=== PATIENT | male | born 1940 | race Hispanic/Latino ===

== ENCOUNTER 2024-03-21 04:12 | Emergency (ER) | payer MEDICARE ==
[~2024-03-21] VITALS: Ht 165.1 cm; Wt 60.3 kg
[2024-03-21 04:46] LABS: RAPID GROUP A STREP negative (NEGATIVE)
[2024-03-21 04:48] LABS: SARS-CoV-2, RNA, NAAT NEGATIVE SARS CoV-2 (NEGATIVE)
[2024-03-21 04:53] LABS: INFLUENZA TYPE A Negative For Type A (NEGATIVE); INFLUENZA TYPE B Negative For Type B (NEGATIVE)
[2024-03-21] MEDS: IPRATROPIUM/ALBUTEROL SULFATE 3 ML SOLUTION IH ONE (05:07)
[2024-03-21 05:10] VITALS: PULSE 70; RESP 19
[2024-03-21 05:29] LABS: BASOPHILS # (AUTO) 0.02 K/uL (0.00-0.20); BASOPHILS % (AUTO) 0.2 % (0.0-5.0); EOSINOPHILS # (AUTO) 0.05 K/uL (0.00-0.70); EOSINOPHILS % (AUTO) 0.5 % (0.0-8.0); IMMATURE GRANULOCYTE ABSOLUTE 0.04 K/uL (0-1); LYMPHOCYTES # (AUTO) 1.4 K/uL (1.0-4.8); LYMPHOCYTES % (AUTO) 13.3 % (21.0-51.0); MEAN CORPUSCULAR HEMOGLOBIN 29.3 pg (27.0-33.0); MEAN CORPUSCULAR HGB CONC 33.6 g/dL (32.0-36.0); MEAN CORPUSCULAR VOLUME 87.1 fL (79-99); MONOCYTES # (AUTO) 0.6 K/uL (0.1-1.0); MONOCYTES % (AUTO) 5.9 % (3.0-13.0); NEUTROPHILS # (AUTO) 8.4 K/uL (1.8-7.7); NEUTROPHILS % (AUTO) 79.7 % (40.0-77.0); PLATELET COUNT (AUTO) 263 K/uL (130-400); RED BLOOD CELL COUNT(AUTO) 5.05 MIL/uL (4.50-6.20); RED CELL DISTRIBUTION WIDTH 13.4 % (11.0-15.5); WHITE BLOOD COUNT (AUTO) 10.5 K/uL (4.8-10.8)
[2024-03-21 05:40] LABS: CREATININE 1.3 mg/dL (0.5-1.3); POTASSIUM 4.3 mmol/L (3.5-5.1)
[2024-03-21 05:45] LABS: ALBUMIN 3.8 g/dL (3.5-5.0); BILIRUBIN,TOTAL 0.3 mg/dL (0.2-1.0); TOTAL PROTEIN, SERUM 8.2 g/dL (6.0-8.3)
[2024-03-21 06:06] LABS: B-TYPE NATRIURETIC PEPTIDE 104 pg/mL (0-100)
[2024-03-21 06:43] VITALS: BP 138/70; PULSE 80; RESP 18; O2SAT 98
[2024-03-21] MEDS ORDERED: AZIT500T2 PO (06:51)
[2024-03-21] MEDS ORDERED: ALBUHFA IH (06:51)
== END 2024-03-21 07:02 | disposition home or self-care (01) ==
LOC: EDH 04:12
DX: J20.9 Acute bronchitis, unspecified (principal); I10 Essential (primary) hypertension; Z20.822 Contact with and (suspected) exposure to COVID-19
CPT/HCPCS: 36415; 71045; 80053; 82550; 83880; 84484; 85025; 87635; 87804; 87880; 93005; 94640

== ENCOUNTER 2024-05-13 02:17 | Emergency (ER) | payer BC, MEDICARE ==
[~2024-05-13] VITALS: Ht 165.1 cm; Wt 59.4 kg
[~2024-05-13 02:17] MED LIST: ALBUHFA IH; AZIT500T2 PO
[2024-05-13 02:37] LABS: BASOPHILS # (AUTO) 0.05 K/uL (0.00-0.20); BASOPHILS % (AUTO) 0.4 % (0.0-5.0); EOSINOPHILS % (AUTO) 0.7 % (0.0-8.0); HEMATOCRIT 38.8 % (42-54); IMMATURE GRANULOCYTE ABSOLUTE 0.05 K/uL (0-1); LYMPHOCYTES # (AUTO) 1.8 K/uL (1.0-4.8); LYMPHOCYTES % (AUTO) 13.7 % (21.0-51.0); MEAN CORPUSCULAR HEMOGLOBIN 28.7 pg (27.0-33.0); MEAN CORPUSCULAR HGB CONC 33.8 g/dL (32.0-36.0); MEAN CORPUSCULAR VOLUME 84.9 fL (79-99); MONOCYTES # (AUTO) 0.9 K/uL (0.1-1.0); MONOCYTES % (AUTO) 6.6 % (3.0-13.0); NEUTROPHILS # (AUTO) 10.5 K/uL (1.8-7.7); NEUTROPHILS % (AUTO) 78.2 % (40.0-77.0); PLATELET COUNT (AUTO) 268 K/uL (130-400); RED BLOOD CELL COUNT(AUTO) 4.57 MIL/uL (4.50-6.20); RED CELL DISTRIBUTION WIDTH 13.7 % (11.0-15.5); WHITE BLOOD COUNT (AUTO) 13.4 K/uL (4.8-10.8)
[2024-05-13 02:47] LABS: CREATININE 1.3 mg/dL (0.5-1.3); POTASSIUM 4.2 mmol/L (3.5-5.1)
[2024-05-13 02:50] LABS: SARS-CoV-2, RNA, NAAT NEGATIVE SARS CoV-2 (NEGATIVE)
[2024-05-13 02:55] LABS: INFLUENZA TYPE A Negative For Type A (NEGATIVE); INFLUENZA TYPE B Negative For Type B (NEGATIVE)
[2024-05-13 02:57] LABS: B-TYPE NATRIURETIC PEPTIDE 96 pg/mL (0-100)
[2024-05-13] MEDS: 0.9% NACL 500ML IV.SOLN 500 ML IV ONE (03:13)
[2024-05-13] MEDS: SOLU-MEDROL 40MG VIAL IVP ONE (03:13)
[2024-05-13 03:14] LABS: APPEARANCE,URINE CLEAR (CLEAR); BILIRUBIN,URINE NEGATIVE (NEGATIVE); COLOR,URINE LIGHT-YELLOW (YELLOW); GLUCOSE, URINE (UA) NEGATIVE (NEGATIVE); KETONES,URINE NEGATIVE (NEGATIVE); LEUKOCYTE ESTERASE ,URINE NEGATIVE Leu/uL (NEGATIVE); NITRATE,URINE NEGATIVE (NEGATIVE); OCCULT BLOOD,URINE NEGATIVE (NEGATIVE); PROTEIN,URINE NEGATIVE (NEGATIVE); UROBILINOGEN,URINE 0.2 mg/dL (0.2-1.0)
[2024-05-13 03:16] LABS: ADD UA MICROSCOPIC NO
[2024-05-13] MEDS: ZOSYN 3.375GM +NS 50ML IV ONE (03:31)
[2024-05-13] MEDS: IPRATROPIUM/ALBUTEROL SULFATE 3 ML SOLUTION IH ONE (03:35)
[2024-05-13 03:41] VITALS: PULSE 79; RESP 18
[2024-05-13] MEDS ORDERED: LEVO750T39 PO (04:32)
[2024-05-13] MEDS ORDERED: BUDE10.7 IH (04:32)
[2024-05-13] MEDS ORDERED: PRED20TA3 PO (04:32)
[2024-05-13 04:55] VITALS: BP 163/58; PULSE 79; RESP 18; O2SAT 97
== END 2024-05-13 04:56 | disposition home or self-care (01) ==
LOC: EDH 02:17
DX: J44.1 Chronic obstructive pulmonary disease with (acute) exacerbation (principal); J96.11 Chronic respiratory failure with hypoxia; E78.00 Pure hypercholesterolemia, unspecified; I10 Essential (primary) hypertension; F17.200 Nicotine dependence, unspecified, uncomplicated; Z20.822 Contact with and (suspected) exposure to COVID-19; Z99.81 Dependence on supplemental oxygen; Z79.899 Other long term (current) drug therapy; Z98.890 Other specified postprocedural states
CPT/HCPCS: 99291; 96374; 71045; 87635; 96375; 82550; 84484 ×2; 80048; 83880; 85025; 87804 ×2; 81003; 36415; 93005; 94640; J7040; J2919; J2543

== ENCOUNTER 2024-05-18 23:07 | Emergency (ER) | payer MEDICARE ==
[~2024-05-18] VITALS: Ht 165.1 cm; Wt 59.0 kg
[~2024-05-18 23:07] MED LIST changes: +BUDE10.7 IH; +LEVO750T39 PO; +PRED20TA3 PO
[2024-05-18] MEDS: SOLU-MEDROL 125MG VIAL IVP ONE (23:30)
[2024-05-18 23:31] LABS: HEMATOCRIT 42.2 % (42-54); IMMATURE GRANULOCYTE ABSOLUTE 0.04 K/uL (0-1); LYMPHOCYTES # (AUTO) 0.5 K/uL (1.0-4.8); LYMPHOCYTES % (AUTO) 4.6 % (21.0-51.0); MEAN CORPUSCULAR HEMOGLOBIN 28.8 pg (27.0-33.0); MEAN CORPUSCULAR HGB CONC 34.4 g/dL (32.0-36.0); MEAN CORPUSCULAR VOLUME 83.7 fL (79-99); MONOCYTES # (AUTO) 0.5 K/uL (0.1-1.0); MONOCYTES % (AUTO) 4.6 % (3.0-13.0); NEUTROPHILS % (AUTO) 90.4 % (40.0-77.0); PLATELET COUNT (AUTO) 286 K/uL (130-400); RED BLOOD CELL COUNT(AUTO) 5.04 MIL/uL (4.50-6.20); RED CELL DISTRIBUTION WIDTH 13.9 % (11.0-15.5)
[2024-05-18 23:38] LABS: CREATININE 1.2 mg/dL (0.5-1.3); POTASSIUM 4.3 mmol/L (3.5-5.1)
[2024-05-18] MEDS: IPRATROPIUM/ALBUTEROL SULFATE 3 ML SOLUTION IH ONE (23:48)
[2024-05-18 23:49] VITALS: PULSE 83; RESP 19
[2024-05-19 00:01] LABS: INR <= 0.93 (0.85-1.15); PROTHROMBIN TIME 10.5 SEC (9.6-11.6)
[2024-05-19 00:19] LABS: PARTIAL THROMBOPLASTIN TIME 26.9 SEC (26.3-35.5)
[2024-05-19 01:55] LABS: B-TYPE NATRIURETIC PEPTIDE 71 pg/mL (0-100)
[2024-05-19 02:18] VITALS: BP 137/60; PULSE 90; RESP 11; O2SAT 97
[2024-05-19] MEDS ORDERED: AZIT250T9 PO (02:32)
[2024-05-19] MEDS ORDERED: METH4TAB3 PO (02:32)
== END 2024-05-19 02:50 | disposition home health service (06) ==
LOC: EDH 23:07
DX: J18.9 Pneumonia, unspecified organism (principal); J98.4 Other disorders of lung; J44.9 Chronic obstructive pulmonary disease, unspecified; E78.00 Pure hypercholesterolemia, unspecified; I10 Essential (primary) hypertension; Z90.49 Acquired absence of other specified parts of digestive tract
CPT/HCPCS: 99285; 96374; 71045; 84484; 80048; 83880; 85025; 85610; 85730; 36415; 93005; 94640; 84145; J2919

== ENCOUNTER 2024-05-30 04:01 | Emergency (ER) | payer MEDICARE ==
[~2024-05-30] VITALS: Ht 165.1 cm; Wt 61.2 kg
[~2024-05-30 04:01] MED LIST changes: +AZIT250T9 PO; +METH4TAB3 PO
[2024-05-30 04:43] LABS: APPEARANCE,URINE CLEAR (CLEAR); BILIRUBIN,URINE NEGATIVE (NEGATIVE); COLOR,URINE COLORLESS (YELLOW); GLUCOSE, URINE (UA) NEGATIVE (NEGATIVE); KETONES,URINE NEGATIVE (NEGATIVE); LEUKOCYTE ESTERASE ,URINE NEGATIVE Leu/uL (NEGATIVE); NITRATE,URINE NEGATIVE (NEGATIVE); OCCULT BLOOD,URINE NEGATIVE (NEGATIVE); PROTEIN,URINE NEGATIVE (NEGATIVE); UROBILINOGEN,URINE 0.2 mg/dL (0.2-1.0)
[2024-05-30 04:56] LABS: SARS-CoV-2, RNA, NAAT NEGATIVE SARS CoV-2 (NEGATIVE)
[2024-05-30] MEDS ORDERED: IPRATROPIUM/ALBUTEROL SULFATE 3 ML SOLUTION IH ONE (05:00)
[2024-05-30 05:03] LABS: INFLUENZA TYPE A Negative For Type A (NEGATIVE); INFLUENZA TYPE B Negative For Type B (NEGATIVE)
[2024-05-30 05:06] LABS: ADD UA MICROSCOPIC NO
[2024-05-30 05:25] LABS: BASOPHILS # (AUTO) 0.02 K/uL (0.00-0.20); BASOPHILS % (AUTO) 0.3 % (0.0-5.0); EOSINOPHILS # (AUTO) 0.11 K/uL (0.00-0.70); EOSINOPHILS % (AUTO) 1.6 % (0.0-8.0); HEMATOCRIT 39.5 % (42-54); IMMATURE GRANULOCYTE ABSOLUTE 0.02 K/uL (0-1); LYMPHOCYTES # (AUTO) 1.2 K/uL (1.0-4.8); LYMPHOCYTES % (AUTO) 17.2 % (21.0-51.0); MEAN CORPUSCULAR HEMOGLOBIN 28.1 pg (27.0-33.0); MEAN CORPUSCULAR HGB CONC 32.4 g/dL (32.0-36.0); MEAN CORPUSCULAR VOLUME 86.6 fL (79-99); MONOCYTES # (AUTO) 0.6 K/uL (0.1-1.0); MONOCYTES % (AUTO) 8.4 % (3.0-13.0); NEUTROPHILS # (AUTO) 5.1 K/uL (1.8-7.7); NEUTROPHILS % (AUTO) 72.2 % (40.0-77.0); PLATELET COUNT (AUTO) 230 K/uL (130-400); RED BLOOD CELL COUNT(AUTO) 4.56 MIL/uL (4.50-6.20)
[2024-05-30 05:50] LABS: ALBUMIN 3.1 g/dL (3.5-5.0); BILIRUBIN,TOTAL 0.4 mg/dL (0.2-1.0); CREATININE 1.2 mg/dL (0.5-1.3); POTASSIUM 4.4 mmol/L (3.5-5.1); TOTAL PROTEIN, SERUM 6.3 g/dL (6.0-8.3)
[2024-05-30] MEDS ORDERED: AMOX1TAB16 PO (06:27)
[2024-05-30] MEDS ORDERED: FLUT16H NASAL (06:27)
[2024-05-30 06:42] VITALS: BP 134/74; PULSE 66; RESP 20; O2SAT 98
== END 2024-05-30 06:45 | disposition home or self-care (01) ==
LOC: EDH 04:01
DX: J32.9 Chronic sinusitis, unspecified (principal); E78.00 Pure hypercholesterolemia, unspecified; I10 Essential (primary) hypertension; Z79.52 Long term (current) use of systemic steroids; Z90.49 Acquired absence of other specified parts of digestive tract; Z20.822 Contact with and (suspected) exposure to COVID-19
CPT/HCPCS: 36415; 71045; 80053; 81003; 83880; 84484; 85025; 87635; 87804; 93005

== ENCOUNTER → 2024-06-08 | Outpatient (CLI) | payer MEDICARE ==
[~2024-06-08] MED LIST changes: +AMOX1TAB16 PO; +FLUT16H NASAL
== END | disposition home or self-care (01) ==
LOC: RAH 12:56
PROVIDERS: ATTEND Internal Medicine
DX: R91.1 Solitary pulmonary nodule (principal); J84.10 Pulmonary fibrosis, unspecified; I25.10 Atherosclerotic heart disease of native coronary artery without angina pectoris; M47.815 Spondylosis without myelopathy or radiculopathy, thoracolumbar region
CPT/HCPCS: 71250

== ENCOUNTER → 2025-01-09 | Outpatient (CLI) | payer BC ==
[~2025-01-09] MED LIST changes: -ALBUHFA IH; +AMLO-257 PO; -AMOX1TAB16 PO; +ASPI-1005 PO; -AZIT250T9 PO; -AZIT500T2 PO; -LEVO750T39 PO; +LOSA100T59 PO; -METH4TAB3 PO; +PRAV20TA4 PO; -PRED20TA3 PO
--- NOTE | 2025-01-09 14:49 | HMCIMG ---
CT CHEST W/O CONTRAST HISTORY: Pulmonary nodule COMPARISON: 07/18/2024 TECHNIQUE: Multiple sequential axial images of the chest were obtained from the thoracic inlet through upper abdomen. Patient was not given contrast through intravenous route. FINDINGS: There is right upper lobe pulmonary nodule measuring 7.3 mm. There are interstitial fibrosis. Calcified granuloma are seen in the bilateral lower lobe superiorly. Minimal interstitial fibrotic changes are seen. No pleural effusion or pericardial effusion is seen. There is no evidence of pneumothorax. There are normal size mediastinal and hilar lymph nodes. The heart is not enlarged. Is coronary arterial calcifications are seen. Degenerative changes of the thoracolumbar spine are present. There is no evidence of adrenal nodule. IMPRESSION: 1. Right upper lobe pulmonary nodule measuring 7.3 mm. Calcified granuloma in the bilateral lower lobes. Interstitial fibrosis with mild bronchiectasis. CT was performed with one or more following dose reduction techniques: automated exposure control, adjustment of the mA and kv according to patient's size, or use of a iterative reconstruction technique.
== END | disposition home or self-care (01) ==
LOC: RAH 12:36
PROVIDERS: ATTEND Internal Medicine
DX: J84.10 Pulmonary fibrosis, unspecified (principal); J47.9 Bronchiectasis, uncomplicated; R91.1 Solitary pulmonary nodule; J98.4 Other disorders of lung; I25.10 Atherosclerotic heart disease of native coronary artery without angina pectoris; M47.815 Spondylosis without myelopathy or radiculopathy, thoracolumbar region
CPT/HCPCS: 71250